=== PATIENT | female | born 1975 | race Caucasian/White ===

== ENCOUNTER 2021-12-18 05:11 | Observation (INO) ==
--- NOTE | 2021-11-14 15:21 | PAT Medication Instructions ---
Medication Instructions Date of Service November 14, 2021 Home Medications famotidine 10 mg tablet 10 mg PO HS norethindrone acetate 1 mg-ethinyl estradiol 20 mcg tablet () 1 tab PO HS ASK your prescriber and surgeon norethindrone acetate 1 mg-ethinyl estradiol 20 mcg tablet () 1 tab PO HS Take evening before surgery famotidine 10 mg tablet 10 mg PO HS OTHERWISE NOTHING TO EAT OR DRINK AFTER MIDNIGHT Other Notes If you have any questions please call us at [phone] or [phone] or [phone] or [phone]
--- NOTE | 2021-11-21 14:33 | Anesthesiology Consultation ---
Date of Service November 21, 2021 Assessment & Plan (1) Encounter for pre-operative examination: - Check test AM DOS - COVID screening: Per assessment on 11/21: No known COVID-19 positive contacts or current COVID-19 related symptoms. Travel screen negative. Surgeon arranging preop COVID testing. Awaiting results. - Hx of difficult SAB: Pt reports that she has had 2 c-sections with spinals. She states that with her second spinal, she was told it was difficult to place d/t her scoliosis but was able to successfully place it. Chart Review Chart Review: Acceptable Risk for Surgery and Patient seen in Pre Admission Testing Teaching & Discussion Pre-Anesthesia Teaching/Discussion Notes: Instructed NPO after midnight before surgery,except medications with 15 cc of water. Medication instructions provided according to the PAT guidelines. History Surgery Operation Date: 12/18/21 09:50 Proposed Procedures p Right Total Knee Arthroplasty - Donovan Raya MD Height/Weight Height: 5 ft 2 in Weight: 87.3 kg Allergies Allergy/AdvReac Type Severity Reaction Status Date / Time quetiapine [From Seroquel] Allergy Intermediate Rash Verified 11/11/21 15:32 risperidone [From Risperdal] Allergy Intermediate Rash Verified 11/11/21 15:32 Medications Home Medications Medication Instructions Recorded Confirmed Last Taken famotidine 10 mg tablet 10 mg PO HS 11/11/21 11/11/21 Unknown norethindrone acetate 1 mg-ethinyl 1 tab PO HS 11/11/21 11/11/21 Unknown estradiol 20 mcg tablet (Junel) Past Medical History Medical History Depression Hx Epigastric abdominal pain Chronic x years, s/p extensive workup from PCP - no significant findings Heartburn History of COVID-19 02/2021 Admitted overnight at [facility] for fluids. Severe nausea/vomiting/diarrhea, low grade fever > symptoms resolved Kidney stones Left kidney stone - no surgical intervention Osteoarthritis Scoliosis Exercise / Class Metabolic Activity II 4-5 Yardwork/Stairs/Walk up hill (one FS (no CP, no SOB)) Past Family History Family History Other No family history of adverse response to anesthesia Past Surgical History Surgical History H/O wisdom tooth extraction History of colonoscopy S/P lumbar laminectomy + microdiscectomy (Rekha Mandel) Past Anesthesia History No Family Hx of Anesthesia Complications and Other Pt reports that she has had 2 c-sections with spinals. She states that with her second spinal, she was told it was difficult to place d/t her scoliosis but was able to successfully place it. History of PONV No Hx of PONV and Hx of Motion Sickness Social History Smoking Status: Never smoker Do You Dip or Chew Tobacco: No Hx Alcohol Use: No Hx Substance Use: No substance use type: does not use Review of Systems Patient denies chest pain, shortness of breath, dyspnea on exertion, fever, chills, cough, wheezing, palpitations. Physical Exam Vital Signs VITALS BP 124/79 P 68 TEMP 98.5 SP02 96%RA RESP 18 PHYSICAL Full cervical extension range of motion. Full TMJ range of motion. TMD 4 finger breaths Mallampati Score 3 Dentition: intact, several missing sides, post on molar (did not get crown) Lungs: clear throughout to auscultation Cardiac: regular rate and rhythm, no murmurs noted Spine: normal Carotid arteries: negative bruit Extremities: no edema Lab Results Anesthesia Preop Results Results Anesthesia Widget: WBC 12.28 K/ul (4.8-10.8) H 11/21/21 Hgb 12.9 g/dl (12.0-16.0) 11/21/21 Hct 39.9 % (34.1-44.9) 11/21/21 Plt 324 K/uL (130-400) 11/21/21 Na 137 mmol/L (136-145) 11/21/21 K 3.9 mmol/L (3.5-5.1) 11/21/21 Cl 103 mmol/L (98-107) 11/21/21 CO2 27 mmol/L (21-32) 11/21/21 BUN 12 mg/dl (6-23) 11/21/21 Creat 0.64 mg/dl (0.6-1.2) 11/21/21 Glucose Level 99 mg/dl (70-99(Fasting)) 11/21/21 PT 10.4 Seconds (9.0-12.0) 11/21/21 PTT 25.4 Seconds (21.0-31.0) 11/21/21 INR 1.0 (0.9-1.1) 11/21/21 HA1c 5.4 % (4.5-5.6) 11/21/21 Urine Color Yellow 11/21/21 Urine Appearance Clear (Clear) 11/21/21 Urine pH 7.5 (4.5-7.5) 11/21/21 Urine Specific Voss 1.023 (1.000-1.030) 11/21/21 Urine Protein Negative (Negative) 11/21/21 Urine Glucose (UA) Negative (Negative) 11/21/21 Urine Ketones Negative (Negative) 11/21/21 Urine Blood Negative (Negative) 11/21/21 Urine Nitrite Negative (Negative) 11/21/21 Urine Bilirubin Negative (Negative) 11/21/21 Urine Urobilinogen Negative (Negative) 11/21/21 Urine Leukocyte Esterase Trace (Negative) H 11/21/21 Urine WBC (Auto) 1-5 /hpf (0-5) 11/21/21 Urine RBC (Auto) 10-30 /hpf (0-4) H 11/21/21 Urine Hyaline Casts (Auto) 1-5 /lpf (0-5) 11/21/21 Urine Epithelial Cells (Auto) >30 /lpf (0-5) H 11/21/21 Urine Bacteria (Auto) 2+ (Negative) H 11/21/21 Blood Type B Positive 11/21/21 Antibody Screen NEGATIVE 11/21/21 Testing Laboratory Results Surgeon's office made aware of elevated WBC and abnormal UA* Electrocardiogram Date: 11/21/21 NSR at 66bpm. Chest X-Ray Date: 11/21/21 FINDINGS: The lungs are clear. Cardiac silhouette is normal in size. No pleural effusions. No pneumothorax. S-shaped scoliosis of the thoracolumbar spine. IMPRESSION: No acute process.
--- NOTE | 2021-12-13 21:16 | History & Physical Report ---
Date of Service December 13, 2021 Assessment & Plan (1) Primary osteoarthritis of right knee: Plan: Treatment options discussed with patient. She has failed conservative measures as above and would like to proceed with surgical intervention. Risks, benefits and alternatives to surgery including but not limited to infection, DVT, pain, stiffness, need for revision surgery, damage to blood vessels, damage to nerves, PE, , were discussed with the patient and they wish to proceed. Plan on right total knee arthroplasty scheduled for [facility] on 12/18/21. Plan on aspirin 81mg BID x 1 mo post op for DVT prophylaxis. Plan on OPPT. All questions answered. F/u post op. History of Present Illness Chief Complaint: Right knee pain Primary Care Provider: Kory Potter PA-C 46 year old female with PMHx significant for depression and GERD who presents with ongoing right knee pain. She has failed conservative measures including injections and anti-inflammatories. Pain interfering with her daily activity. She would like to proceed with surgical intervention. Patient denies headaches, sweats, fevers, chills, double vision, blurred vision, cough, sore throat, dysphagia, chest pain, sob, wheezing, n/v/d/c, numbness, tingling, fatigue, urinary symptoms, mood disorders. ROS positive for right knee pain and stiffness. Allergies Allergy/AdvReac Type Severity Reaction Status Date / Time quetiapine [From Seroquel] Allergy Intermediate Rash Verified 11/11/21 15:32 risperidone [From Risperdal] Allergy Intermediate Rash Verified 11/11/21 15:32 Home Medications Medication Instructions Recorded Confirmed Type famotidine 10 mg tablet 10 mg PO HS 11/11/21 11/11/21 History norethindrone acetate 1 mg-ethinyl 1 tab PO HS 11/11/21 11/11/21 History estradiol 20 mcg tablet (Junel) Past Med/Surg History Medical History Depression Hx Epigastric abdominal pain Chronic x years, s/p extensive workup from PCP - no significant findings Heartburn History of COVID-19 02/2021 Admitted overnight at [facility] for fluids. Severe nausea/vomiting/diarrhea, low grade fever > symptoms resolved Kidney stones Left kidney stone - no surgical intervention Osteoarthritis Scoliosis Surgical History H/O wisdom tooth extraction History of colonoscopy S/P lumbar laminectomy + microdiscectomy (MARY Mandel) Family History Other No family history of adverse response to anesthesia Social History Smoking Status: Never smoker Second Hand Exposure: No; Hx Alcohol Use: No Hx Substance Use: No Preferred Language: Tunisian Communication Ability: Effective Handle Attacher Required: No Beliefs That Will Affect Care: None Current Living Situation: Family Feels Safe at Home: Yes Assistive Devices: Contacts and Glasses Review of Systems All systems reviewed & are unremarkable except as noted in HPI & below Physical Exam Constitutional: well developed and well nourished; no acute distress Eyes: PERRL, conjunctivae normal, anicteric sclerae ENMT: external ear and nose normal, oropharynx normal Neck: trachea midline, no thyromegaly Respiratory: normal respiratory effort, lungs clear to auscultation Cardiovascular: RRR, no murmur, no edema Musculoskeletal: Right knee: Varus alignment. Mild effusion. Tenderness diffusely, max tenderness medial joint line. Stable to valgus and varus stress. Positive Gisella's. ROM 5-100 degrees Skin: no rashes, warm and dry Neurologic: patellar DTR's 2+ bilat, sensation intact Psychiatric: A+Ox3, euthymic affect Results & Data ([facility]) Diagnostic Findings Right knee radiographs demonstrates significant joint space narrowing medial compartment with periarticular osteophyte formation and subchondral sclerosis. There is tricompartmental degenerative changes.
[2021-12-18] MEDS ORDERED: GABAPENTIN 900 MG DOSE PO SCH (06:00)
[2021-12-18] MEDS ORDERED: CeleBREX 200 MG CAP PO SCH (06:00)
[2021-12-18] MEDS ORDERED: ACETAMINOPHEN 500 MG TAB PO SCH (06:00)
[2021-12-18] MEDS ORDERED: ceFAZolin 2000MG 2,000 MG/15 ML SYR IV SCH (06:00)
[2021-12-18] MEDS ORDERED: TRANEXAMIC ACID 1,000 MG **IV Pre-op IV SCH (06:00)
[2021-12-18] MEDS ORDERED: TRANEXAMIC ACID 1,000 MG **IV Intra-op IV SCH (06:00)
[2021-12-18] MEDS ORDERED: METOCLOPRAMIDE HCL 10 MG TABLET PO SCH (06:00)
[2021-12-18] MEDS ORDERED: FAMOTIDINE 20 MG TAB PO SCH (06:00)
[2021-12-18] MEDS ORDERED: LR 500ML BOLUS, THEN 15ML/HR IV SCH (06:00)
[2021-12-18] MEDS ORDERED: ROPIVACAINE 0.5% HCL/PF 150 MG, BUPIVACAINE 0.75% MPF 20 ML, EPINEPHrine 30MG/30ML (OR ... INSTIL SCH ×2 (06:00→09:00)
[2021-12-18] MEDS ORDERED: dexAMETHasone 4 MG TAB PO SCH (06:00)
[2021-12-18] MEDS ORDERED: EPINEPHrine INJ 1 MG/ML AMP ONE (06:18)
[2021-12-18] MEDS ORDERED: BUPIVACAINE 0.5 % 5 MG/1 ML PF 10ML VIAL ONE (06:18)
[2021-12-18] MEDS ORDERED: ROPIVACAINE 0.5% 5 MG/ML 30 ML VIAL ONE (06:18)
[2021-12-18] MEDS ORDERED: MIDAZOLAM HCL 1 MG/ML 2ML VIAL ONE (06:43)
[2021-12-18] MEDS ORDERED: ORTHO JOINT ANESTHETIC ONE (07:51)
--- NOTE | 2021-12-18 07:58 | History & Physical Bridge Note ---
Date of Service December 18, 2021 History & Physical Bridge Note I have examined the patient, reviewed the History & Physical and in the interval since the performance of the History & Physical I have noted the following changes of clinical significance: no changes noted
[2021-12-18] MEDS ORDERED: KETAMINE 50 MG/5 ML SYRINGE ONE (08:14)
[2021-12-18] MEDS ORDERED: PROPOFOL IV EMULSION 10 MG/ML 20 ML VIAL IV ONE ×2 (08:23→09:19)
[2021-12-18] MEDS ORDERED: ONDANSETRON INJ 2 MG/ML 2 ML VIAL ONE (08:23)
[2021-12-18] MEDS ORDERED: ORTHO JOINT ANESTHETIC IM ONE (08:42)
[2021-12-18] MEDS ORDERED: ONDANSETRON INJ 2 MG/ML 2 ML VIAL IV PRN (09:47)
[2021-12-18] MEDS ORDERED: NALOXONE HCL 0.4 MG/1 ML VIAL/CARP IV PRN ×2 (09:47→11:35)
[2021-12-18] MEDS ORDERED: fentaNYL citrate 100 MCG/2 ML VIAL IV PRN (09:47)
[2021-12-18] MEDS ORDERED: HYDROmorphone INJ 1 MG/ML SYRINGE IV PRN (09:47)
[2021-12-18] MEDS ORDERED: PROMETHAZINE HCL 12.5 MG in SODIUM CHLORIDE 0.9% 50 ML IV PRN (09:47)
[2021-12-18] MEDS ORDERED: ePHEDrine sulfate 50 MG/ML AMP IV PRN (09:47)
[2021-12-18] MEDS ORDERED: ATROPINE SULFATE 0.1 MG/ML 10ML SYR IV PRN (09:47)
[2021-12-18] MEDS ORDERED: FLUMAZENIL 0.1 MG/1 ML 10 ML VIAL IV PRN (09:47)
--- NOTE | 2021-12-18 10:04 | Operative Report ---
Post Operative Report Pre & Post Diagnosis Operation Date: 12/18/21 07:00 Pre-Op Diagnosis: Unilateral Primary Osteoarthritis, Right Knee Post-Op Diagnosis: Unilateral Primary Osteoarthritis, Right Knee I identified the patient and participated in the time-out.: Yes Procedure Operation Date: 12/18/21 07:00 Actual Procedures p Right Total Knee Arthroplasty(Right) application negative pressure superficial wound VAC- Donovan Raya MD Surgeon Donovan Raya MD Import Export Agent Bill KIRAN Estimated Blood Loss 5 Findings Consistent with Post-Op Diagnosis Specimens Bone cuts Drains 2 Hemovac Anesthesia Type MAC Spinal Regional Complications none Disposition Disposition: Recovery Room Indications 46-year-old female with end-stage right knee osteoarthritis failed conservative management [id number] in the medial compartment patellofemoral medial compartment osteoarthritis subluxation of the femur medial on the tibia Description of Procedure Patient was taken to the operating room placed supine on the operating table and anesthetized under spinal MAC regional block anesthesia. Exam under anesthesia demonstrated 0 through 125 degrees range of motion with a varus knee and mild effusion and no instability and no pseudolaxity. There was moderate obesity of the knee and thigh. A pneumatic tourniquet was placed about the thigh of the right lower extremity. The right lower extremity was prepped and draped in usual sterile fashion. The leg was elevated exsanguinated with an Esmarch bandage and the pneumatic tourniquet was raised to 325 mm mercury. An anterior incision was made across the right knee. The skin was incised longitudinally subcutaneous flaps were elevated and an incision was made through the medial retinaculum extending up into the mid third of the quadriceps tendon and extended down to the medial tibial tubercle. Intra-articular findings demonstrated [id number] medial compartment with eburnated bone and a chronic medial meniscus tear and patellofemoral osteoarthritis grade 3. The knee was exposed by excising the infrapatellar fat pad, excising the meniscal remnants and anterior cruciate ligament. Any inflamed synovial tissue was resected. The fat pad over the anterior femur was resected for placement of the component in that area. The lateral synovial bands were release. The femur was exposed. The custom femoral cutting block was pinned in position. The distal femoral cutting block was applied. The distal femoral cut was made with the oscillating saw. The size 9, 4-in-1 cutting block was placed. The anterior and posterior chamfer cuts were made. The knee was extended and a subperiosteal peel lateral release was performed around the patella. The patella width was measured and width was reproduced using freehand cut technique. The 32 millimeter symmetrical patella was used. 3 drill holes are made for the pegs. The tibia was exposed. A custom tibial cutting block was positioned and drill holes were made for the cutting guide. Cutting guide was placed and the proximal cut was made with the oscillating saw. All osteophytes were resected. The lamina spre ader was used to assess ligamentous balance and the ligaments were balanced in extension and flexion. This required a posterior medial release. The tibia was reexposed and measured for a size C tibial component. This was externally rotated in line with the tibial tubercle and the fixation pins were drilled. The proximal tibia was fashioned with the drill and punch. The size 9 femoral trial was inserted. The trial MC inserts were used. The 10 mm insert gave balanced ligaments through full range of motion. The patella tracked centrally. the trials were removed. The orthomix anesthetic cocktail was injected per protocol. The knee was then copiously irrigated with pulsatile lavage saline solution. The final components were cemented with Refobacin bone cement. The final components were [employer] persona right size 9 narrow CR femoral component, see right tibial component, 10 mm right MC polyethylene and a 32 mm symmetrical patella. After the cement cured with the knee in full extension the Betadine soak was used per protocol. The knee joint was copiously irrigated with pulsatile lavage saline solution . 2 drains were brought out laterally and connected to a Hemovac. The quadriceps tendon and medial retinaculum were closed with interrupted [id number] #1 Vicryl sutures. The knee was taken through a full range of motion and repair was secure. The subcutaneous tissues were closed with 2-0 Vicryl sutures and skin was closed with willie. Jacky and Acticoat superficial wound VAC was applied and the patient tolerated the procedure well. Bill KIRAN my physician medical laboratory assistant, participated as programs assistant and was integral part in all aspects of the procedure. He assisted in soft tissue retraction, instrument management ,leg positioning, the closure, the application of the superficial wound VAC and will participate in the postoperative care of the patient. I attest to the content of the Intraoperative Record and any orders documented therein. Any exceptions are noted below.
--- NOTE | 2021-12-18 10:54 | XRay Report ---
XR knee RT 1 or 2V routine CLINICAL HISTORY: Postoperative evaluation. COMPARISON: None FINDINGS: Alignment of the total right knee arthroplasty is anatomic. No periprosthetic fracture or unexpected radiopaque foreign bodies are identified. There are skin willie and surgical drains. IMPRESSION: Expected findings following total right knee arthroplasty. ACT 112: Negative or not required by law. Electronically signed by: Lewis Christianson M.D. 12/18/2021 10:52 AM
--- NOTE | 2021-12-18 11:19 | Anesthesiology Progress Note ---
Date of Service December 18, 2021 Anesthesia Post Procedure Vital Signs Vital Signs: Temp Pulse Resp BP Pulse Ox O2 Del Method O2 Flow Rate 12/18/21 10:40 73 17 136/77 99 Oxymask 5 12/18/21 11:10 61 13 123/73 96 Room Air 12/18/21 11:00 66 14 133/75 96 Room Air 12/18/21 10:50 82 22 137/66 97 Room Air 12/18/21 10:30 89 20 131/71 99 Oxymask 5 12/18/21 10:20 36.5 C 94 H 21 131/66 96 Oxymask 5 12/18/21 05:39 36.6 C 66 18 128/78 98 Room Air Transfer of Care Handoff Completed per policy Notes Mental Status: alert / awake / arousable Patient Amnestic to Procedure: Yes Nausea / Vomiting: adequately controlled Pain: adequately controlled Airway Patency, RR, SpO2: stable & adequate BP & HR: stable & adequate Hydration State: stable & adequate Neuraxial Anesthesia: was administered and sensory block is resolving Anesthetic Complications: no major complications apparent
[2021-12-18] MEDS ORDERED: MAGNESIUM HYDROXIDE SUSP 30 ML UDC PO PRN (11:35)
[2021-12-18] MEDS ORDERED: bisacodyL 10 MG SUPP PR PRN (11:35)
[2021-12-18] MEDS ORDERED: HYDROmorphone INJ 0.5 MG/0.5 ML SYR IV PRN (11:35)
[2021-12-18] MEDS: SODIUM CHLORIDE 0.9% 1000ML 1,000 ML IV SCH ×2 (11:45→22:32)
[2021-12-18] MEDS: ACETAMINOPHEN 500 MG TAB PO SCH ×2 (13:54→22:37)
[2021-12-18] MEDS: ceFAZolin 2000MG 2,000 MG/15 ML SYR IV SCH (16:43)
[2021-12-18] MEDS: SENNA 8.6 MG TAB PO SCH (19:53)
[2021-12-18] MEDS: ASPIRIN 81 MG ECTAB PO SCH (19:53)
[2021-12-18] MEDS: DOCUSATE SODIUM 100 MG CAP PO SCH (20:19)
[2021-12-19] MEDS: ceFAZolin 2000MG 2,000 MG/15 ML SYR IV SCH (01:18)
[2021-12-19] MEDS: ACETAMINOPHEN 500 MG TAB PO SCH ×3 (06:35→21:50)
[2021-12-19 07:21] LABS: Hematocrit (blood only) 32.5 % (34.1-44.9); Hemoglobin 10.7 g/dl (12.0-16.0); Mean Corpuscular Hemoglobin 28.8 pg (25.0-34.0); Mean Corpuscular Hgb Conc 32.9 g/dL (32.0-36.0); Mean Corpuscular Volume 87.4 fL (80.0-100.0); Mean Platelet Volume 10.3 fL (9.4-12.3); Platelet Count 279 K/uL (130-400); RDW Standard Deviation 41.2 fL (36.4-46.3); Red Blood Count 3.72 M/uL (3.93-5.22); White Blood Count 18.83 K/ul (4.8-10.8)
--- NOTE | 2021-12-19 07:48 | Orthopedic Progress Note ---
Date of Service December 19, 2021 Assessment & Plan (1) Primary osteoarthritis of right knee: Plan: Postop day 1 status post right total knee arthroplasty Leukocytosis-WBC 18 this morning. Preop was 12. Most likely secondary to preoperative steroids and or surgical stress. Patient currently asymptomatic. BMP is currently pending. PT/OT protocols. Weightbearing as tolerated. DVT prophylaxis-aspirin p.o. twice daily, SCDs, DARSHAN hose Pain management as written. DC planning-patient is planning for outpatient PT upon discharge. Admission and Anticipated Discharge Date Admission Date: December 18, 2021 Subjective Postop day 1 Patient sitting up in bed awake and alert. Minimal pain this morning. States that Tylenol did help her. She was up to the bathroom this morning without difficulty. Denies shortness of breath, chest pain, lightheadedness. Patient states that she is planning for outpatient PT. Physical Exam Physical Exam: Dressings are clean, dry, and intact. Calves are soft nontender. Neurovascular intact. Toes are mobile. She has good dorsiflexion and plantarflexion of the right foot. Hemovac drainage was 155 mL from the previous shift. Results & Data ([facility]) Vital Signs (Past 12 Hours) Vital Signs Temp Pulse Resp BP Pulse Ox O2 Del Method 12/18/21 19:50 Room Air 12/19/21 03:00 36.8 C 67 18 102/61 96 Room Air 12/18/21 22:53 36.8 C 65 18 112/66 94 Room Air
[2021-12-19 07:50] LABS: BUN Creatinine Ratio 23.6 (10-20); Calcium 8.3 mg/dl (8.5-10.1); Creatinine Clr Calc Pharmacy 99.8 ml/min; Est GFR (African American) 115.6 ml/min; Est GFR (Non-African American) 99.7 ml/min; Potassium 3.7 mmol/L (3.5-5.1)
[2021-12-19] MEDS: oxyCODONE HCL IR 5 MG TAB (IMMEDIATE RELEASE) PO PRN ×2 (08:51→20:20)
[2021-12-19] MEDS: PANTOprazole 40 MG TAB PO SCH (08:52)
[2021-12-19] MEDS: MULTIVITAMIN TAB PO SCH (08:52)
[2021-12-19] MEDS: DOCUSATE SODIUM 100 MG CAP PO SCH ×2 (08:52→20:20)
[2021-12-19] MEDS: ASPIRIN 81 MG ECTAB PO SCH ×2 (08:52→20:09)
[2021-12-19] MEDS: KETOROLAC 30 MG/ML VIAL IV SCH ×3 (11:09→21:50)
[2021-12-19] MEDS: ONDANSETRON INJ 2 MG/ML 2 ML VIAL IV PRN (11:13)
[2021-12-19] MEDS: SENNA 8.6 MG TAB PO SCH (20:09)
[2021-12-20] MEDS: oxyCODONE HCL IR 5 MG TAB (IMMEDIATE RELEASE) PO PRN ×2 (03:04→10:52)
[2021-12-20] MEDS: KETOROLAC 30 MG/ML VIAL IV SCH (03:30)
[2021-12-20] MEDS: ACETAMINOPHEN 500 MG TAB PO SCH (06:35)
[2021-12-20] MEDS: ONDANSETRON INJ 2 MG/ML 2 ML VIAL IV PRN ×2 (07:25→12:43)
[2021-12-20] MEDS: MULTIVITAMIN TAB PO SCH (08:54)
[2021-12-20] MEDS: ASPIRIN 81 MG ECTAB PO SCH (08:54)
[2021-12-20] MEDS: DOCUSATE SODIUM 100 MG CAP PO SCH (08:54)
[2021-12-20] MEDS: PANTOprazole 40 MG TAB PO SCH (08:55)
--- NOTE | 2021-12-20 08:58 | Orthopedic Progress Note ---
Date of Service December 20, 2021 Assessment & Plan (1) Status post right knee replacement: Plan: 46 yo female stable POD #2 s/p right TKA 1. Med management 2. DVT prophylaxis- ASA, SCDs 3. PT/OT 4. D/C planning- home w/ OPPT Admission and Anticipated Discharge Date Admission Date: December 18, 2021 Subjective Pt resting in bed, denies complaints, pain controlled Physical Exam Physical Exam: FARZANA dressing in place, calves soft, toes mobile, NVI Results & Data ([facility]) Vital Signs (Past 12 Hours) Vital Signs Temp Pulse Resp BP Pulse Ox O2 Del Method 12/20/21 07:51 36.8 C 78 16 117/74 96 Room Air
[2021-12-20] MEDS ORDERED: oxyCODONE IR HOME PACK PO ONE (12:24)
--- NOTE | 2021-12-30 08:58 | Discharge Summary ---
Date of Service December 30, 2021 Admission HPI Per Admitting Provider 46 year old female with PMHx significant for depression and GERD who presents with ongoing right knee pain. She has failed conservative measures including injections and anti-inflammatories. Pain interfering with her daily activity. She would like to proceed with surgical intervention. Patient denies headaches, sweats, fevers, chills, double vision, blurred vision, cough, sore throat, dysphagia, chest pain, sob, wheezing, n/v/d/c, numbness, tingling, fatigue, urinary symptoms, mood disorders. ROS positive for right knee pain and stiffness. Admission Exam Per Admitting Provider Constitutional: well developed and well nourished; no acute distress Eyes: PERRL, conjunctivae normal, anicteric sclerae ENMT: external ear and nose normal, oropharynx normal Neck: trachea midline, no thyromegaly Respiratory: normal respiratory effort, lungs clear to auscultation Cardiovascular: RRR, no murmur, no edema Musculoskeletal: Right knee: Varus alignment. Mild effusion. Tenderness diffusely, max tenderness medial joint line. Stable to valgus and varus stress. Positive Gisella's. ROM 5-100 degrees Skin: no rashes, warm and dry Neurologic: patellar DTR's 2+ bilat, sensation intact Psychiatric: A+Ox3, euthymic affect Principal Diagnosis Right knee osteoarthritis Discharge Data Allergies Allergy/AdvReac Type Severity Reaction Status Date / Time quetiapine [From Seroquel] Allergy Intermediate Rash Verified 12/18/21 05:37 risperidone [From Risperdal] Allergy Intermediate Rash Verified 12/18/21 05:37 Procedures Performed Operation Date: 12/18/21 07:00 Actual Procedures p Right Total Knee Arthroplasty(Right) - Donovan Raya MD Ordered Studies 12/18/21 05:00 US - OR guided needle placemen Routine Hospital Course (1) Status post right knee replacement: Patient was admitted on the above-noted date and had the above-noted surgery performed which started well. On her first postoperative day, she was sitting up in her bed awake and alert. Pain is controlled. She stated she has been up to the bathroom without difficulty. Dressings were clean, dry, and intact. Calves were soft nontender. Neurovascular was intact. Toes are mobile. She was started on her PT and OT protocols and continued on DVT prophylaxis and pain management. She had noted leukocytosis of white count of 18,000 however patient was remaining asymptomatic and was likely secondary to preoperative steroids and/or surgical stress. By her second postoperative day, she continued to remain stable. Pain was controlled. Farzana dressing was in place, neurovascular was intact. Toes are mobile. She was progressing with her physical therapy and remaining stable and was felt she be discharged home with outpatient PT. Total Time Total Time Spent Total Time Spent (In Minutes): 10 Discharge Plan Discharge Items Patient Disposition: Home - Self-Care Reason For Visit: Unilateral Primary Osteoarthritis, Right Knee Discharge Diagnosis: Right Knee Osteoarthritis Activity: Per Instructions section Weightbearing: Right weightbearing Weightbearing Comment: as tolerated with walker Non-emergency contact: Surgeon Call non-emergency contact if: you have any medication questions, your pain is not controlled, your temperature is above 101.5, your wound has increased redness and your wound has increased drainage Follow-up/Referrals: Donovan Raya MD [Surgeon] - (Follow up with Dr Raya in 2 weeks from the day of your surgery for your first follow up appointment) Kory Potter PA-C [Primary Care Provider] - Diet: Regular Addtl Attending Provider Instructions: ACTIVITY RECOMMENDATIONS: SELF CARE INSTRUCTIONS AFTER TOTAL KNEE REPLACEMENT A. You may need to continue a physical therapy program after discharge from the hospital. There are several options available to you. Your doctor will assist you in selecting the best one for you. 1. An out-patient facility 2 to 3 times a week for therapy or home therapy. 2. Continue working on all exercises taught to you in the hospital. Your goals should be to increase bending of your knee to 90 degrees and beyond and to fully straighten your knee. B. You may progress at your own pace from walking with a walker or crutches to a cane; then to no assistive devices. C. Make walking a part of your daily routine. Be up as much as comfortable with rest periods throughout the day. Rest with leg elevation is very important. Use the ice wrap frequently for the first 3-4 weeks. D. There are no restrictions on activities. You may ride in a car, shop, participate in documentation nurse and all social activities. E. Wear the long elastic stockings (DARSHAN hose) 20 hours a day for 2 weeks after surgery. They can be removed several times a day for laundering and for a bath. F. You may shower, no tub baths until cleared by your doctor. SPECIAL CARE INSTRUCTIONS: VERY IMPORTANT TO READ AND REVIEW A. There are a few signs you need to watch for after you are home. Call [facility] if you notice any of the followin. Increased severe knee pain. Some pain is expected especially when you exercise. 2. Increased swelling in your leg or knee; pain or swelling of the calf muscle in either lower leg. 3. Any fluid drainage from the incision. 4. Shortness of breath or chest pain. B. Please call [facility] at if you have any concerns or questions about your operation or recovery. The doctor or his nurse will return your call promptly. C. You must take antibiotics before dental work, bladder, bowel or other surgery. Your doctor will provide you with a permanent care to carry describing this precaution. IMPORTANT: * REMEMBER TO TAKE ASPIRIN, 81 MG, TWICE DAILY FOR 4 WEEKS UNLESS OTHERWISE DIRECTED. THIS IS YOUR BLOOD THINNER. * HIGH RISK PATIENTS MAY BE PRESCRIBED A STRONGER BLOOD THINNER. THIS WILL BE PROVIDED AT DISCHARGE. * CALL IF INCREASED PAIN, REDNESS, DRAINAGE OR FEVER GREATER THAT 101. * WEAR DARSHAN HOSE 20 HOURS PER DAY FOR 2 WEEKS. * FARZANA Dressing - This is a large suction dressing covering your incision. This will help pull any excess drainage from the wound and allow your incision to heal properly. You may shower with this if you can keep the unit outside of the shower. If any bleeding or leakage is noted please call your doctor's office. This will remain on your incision for 7 days and then should be removed. This can be done yourself or by the home nursing staff if applicable. The entire unit is disposable once removed. Once removed, keep incision clean and dry. If redness or drainage is noted, please call your surgeon. . FOLLOW UP VISIT: If appointment is not already scheduled: Please call [facility] to make a follow-up appointment for 2 weeks after your surgery at . Pending Studies at Discharge: No Stand-Alone Forms: My [employer], Smoking Cessation Medications and DC Order Prescriptions: New aspirin 81 mg Tablet,Delayed Release (Dr/Ec) 81 mg PO BID 30 Days Qty: 60 0RF acetaminophen [Tylenol Extra Strength] 500 mg Tablet 1,000 mg PO Q8 14 Days Qty: 84 0RF oxycodone 5 mg tablet 5 - 10 mg PO Q6H PRN (Reason: pain) Qty: 18 0RF Rx Instructions: Max 6 tablets daily Continued norethindrone ac-eth estradiol [05/29 (21)] 1-20 mg-mcg Tablet 1 tab PO HS omeprazole 20 mg Capsule,Delayed Release(Dr/Ec) 20 mg PO DAILY Discharge Orders: Discharge Order (Routine); Ordered 12/20/21 Ordered By: Diego Quinn/Other Patient Handouts: DVT Post Op Prevention Admission Data Admit Date/Time: 12/18/21 10:32 Attending Provider: Donovan Raya Admit Provider: Donovan Raya Primary Care Provider: Kory Potter Other Interventions: Discharge Summary Assessment (RN) Last Done: 12/20/21 11:16
== END 2021-12-20 14:40 | disposition home or self-care (01) ==
LOC: PACUINP 05:11 → ASU 05:11 → 3E 12:22